=== PATIENT | male | born 1965 | race Caucasian/White ===

== ENCOUNTER 2021-09-28 17:58 | Inpatient (IN) | payer BC ==
[2021-09-28 23:12] LABS: EPI CELLS 14 /uL (0-25.1); HYALINE CASTS 25 /uL (0-3.1); INR 0.93 (0.83-1.09); PROTHROMBIN TIME (PATIENT) 10.9 SEC (9.7-13.0); URINE APPEARANCE TURBID; URINE BACTERIA 5222 /uL (0-1359); URINE BILIRUBIN NEGATIVE (NEGATIVE); URINE COLOR ORANGE; URINE GLUCOSE (UA) TRACE (NEGATIVE); URINE KETONE NEGATIVE (NEGATIVE); URINE LEUK ESTERASE 3+ (NEGATIVE); URINE NITRITE POSITIVE (NEGATIVE); URINE PROTEIN 2+ (NEGATIVE); URINE UROBILINOGEN 0.2 mg/dL (0.2-1.0); URINE WBC 1460 /uL (0-25.8)
[2021-09-28 23:17] LABS: CALCIUM 9.4 mg/dL (8.5-10.1)
[2021-09-28 23:18] LABS: ALBUMIN 3.4 g/dl (3.4-5.0); BLOOD UREA NITROGEN 47.7 mg/dL (7-18)
[2021-09-28 23:22] LABS: BILIRUBIN,TOTAL 0.8 mg/dL (0.2-1); TOT PROT 8.3 g/dl (6.4-8.2)
[2021-09-28 23:23] LABS: BASO % 0.3 % (0-2.0); EOS % 0.3 % (0-4.5); HEMATOCRIT 36.1 % (35.4-49); HEMOGLOBIN 12.7 GM/dL (11.7-16.9); LYMPH % 11.3 % (8-40); MCH 31.6 pg (25.7-33.7); MCHC 35.3 g/dl (32.0-35.9); MEAN CELL VOLUME 89.3 fl (80-96); MEAN PLT VOLUME 10.2 fl (7.5-11.1); MONO % 12.3 % (3.8-10.2); NEUT % 75.8 % (42.8-82.8); PLATELET COUNT 209 10^3/uL (134-434); RBC 4.04 M/mm3 (4.00-5.60); RDW 12.3 % (11.9-15.9)
[2021-09-28 23:30] LABS: WHITE BLOOD COUNT 10.3 K/mm3 (4.0-10.0)
[2021-09-29 00:01] LABS: URINE RBC 10634.1 /uL (0-23.9); YEAST NONE SEEN (NEGATIVE)
[2021-09-29] MEDS ORDERED: CEFTRIAXONE 1,000 MG in DEXTROSE 5%-WATER - 50 ML IVPB ONE (00:16)
[2021-09-29] MEDS ORDERED: SODIUM CHLORIDE 1,000 ML IV STA (00:17)
[2021-09-29] MEDS ORDERED: CEFTRIAXONE 1 GM/50 ML BAG ONE ×2 (01:12→18:12)
[2021-09-29 01:47] LABS: BLOOD UREA NITROGEN 46.6 mg/dL (7-18)
[2021-09-29 01:51] LABS: CREATININE 1.6 mg/dL (0.55-1.3)
[2021-09-29] MEDS: LACTATED RINGERS SOLUTION 1,000 ML/1,000 ML INFUS.BAG IV SCH (05:00)
[2021-09-29 06:52] LABS: BASO % 0.4 % (0-2.0); EOS % 0.6 % (0-4.5); HEMATOCRIT 36.8 % (35.4-49); LYMPH % 16.3 % (8-40); MCH 30.9 pg (25.7-33.7); MCHC 35.2 g/dl (32.0-35.9); MEAN CELL VOLUME 87.9 fl (80-96); MEAN PLT VOLUME 9.3 fl (7.5-11.1); MONO % 15.2 % (3.8-10.2); NEUT % 67.5 % (42.8-82.8); PLATELET COUNT 309 10^3/uL (134-434); RBC 4.19 M/mm3 (4.00-5.60); RDW 12.2 % (11.9-15.9); WHITE BLOOD COUNT 9.5 K/mm3 (4.0-10.0)
[2021-09-29 07:11] LABS: ALBUMIN 3.1 g/dl (3.4-5.0); BLOOD UREA NITROGEN 39.8 mg/dL (7-18); CALCIUM 8.7 mg/dL (8.5-10.1); MAGNESIUM 2.3 mg/dL (1.8-2.4)
[2021-09-29 07:14] LABS: CREATININE 1.4 mg/dL (0.55-1.3)
[2021-09-29 07:15] LABS: PHOSPHOROUS 3.8 mg/dL (2.5-4.9)
[2021-09-29 07:16] LABS: BILIRUBIN,TOTAL 0.4 mg/dL (0.2-1); TOT PROT 6.9 g/dl (6.4-8.2)
[2021-09-29] MEDS: INSULIN SLIDING SCALE (NOVOLOG) 1 VIAL SQ SCH ×4 (08:13→23:13)
[2021-09-29 09:25] LABS: OPIATES, URI NEGATIVE (NEGATIVE); URINE AMPHETAMINES NEGATIVE (NEGATIVE)
[2021-09-29 09:26] LABS: METHADONE, UR NEGATIVE (NEGATIVE); PHENCYCLIDINE,URINE NEGATIVE (NEGATIVE); URINE BENZODIAZEPINES NEGATIVE (NEGATIVE)
[2021-09-29 09:37] LABS: COCAINE, UR POSITIVE (NEGATIVE); URINE BARBITURATES NEGATIVE (NEGATIVE)
[2021-09-29 09:56] LABS: EPI CELLS 32 /uL (0-25.1); HYALINE CASTS 28 /uL (0-3.1); URINE APPEARANCE TURBID; URINE BILIRUBIN NEGATIVE (NEGATIVE); URINE COLOR ORANGE; URINE GLUCOSE (UA) 2+ (NEGATIVE); URINE KETONE 1+ (NEGATIVE); URINE LEUK ESTERASE 2+ (NEGATIVE); URINE NITRITE NEGATIVE (NEGATIVE); URINE PROTEIN 3+ (NEGATIVE); URINE UROBILINOGEN 0.2 mg/dL (0.2-1.0); URINE WBC 10989 /uL (0-25.8)
[2021-09-29 10:32] LABS: URINE RBC MODERATE /uL (0-23.9); YEAST NO SEEN (NEGATIVE)
[2021-09-29 10:33] LABS: URINE BACTERIA MANY /uL (0-1359)
[2021-09-29] MEDS ORDERED: INSULIN (LEVEMIR) 100 UNITS/ML UNITS SQ ONE ×2 (14:25→22:49)
[2021-09-29] MEDS: CEFTRIAXONE 1 GM in DEXTROSE 5%-WATER - 50 ML IVPB SCH (18:19)
[2021-09-29] MEDS: INSULIN (LEVEMIR) 100 UNITS/ML UNITS SQ SCH (23:13)
[2021-09-30 01:42] VITALS: BMI 22.4
[2021-09-30] MEDS ORDERED: PNEUMOC 13-VAL CONJ-DIP CRM/PF 0.5 ML DISP.SYRIN IM ONE (01:42)
[2021-09-30 01:50] LABS: CALCIUM 8.4 mg/dL (8.5-10.1)
[2021-09-30 01:51] LABS: BLOOD UREA NITROGEN 27.3 mg/dL (7-18)
[2021-09-30 01:54] LABS: CREATININE 1.1 mg/dL (0.55-1.3)
[2021-09-30] MEDS: LACTATED RINGERS SOLUTION 1,000 ML/1,000 ML INFUS.BAG IV SCH ×3 (02:03→21:21)
[2021-09-30] MEDS: INSULIN SLIDING SCALE (NOVOLOG) 1 VIAL SQ SCH ×4 (06:01→21:21)
[2021-09-30 09:19] LABS: BASO % 0.6 % (0-2.0); EOS % 2.7 % (0-4.5); HEMATOCRIT 35.7 % (35.4-49); HEMOGLOBIN 12.4 GM/dL (11.7-16.9); LYMPH % 20.7 % (8-40); MCH 30.8 pg (25.7-33.7); MCHC 34.6 g/dl (32.0-35.9); MEAN CELL VOLUME 89.1 fl (80-96); MEAN PLT VOLUME 9.1 fl (7.5-11.1); MONO % 12.9 % (3.8-10.2); NEUT % 63.1 % (42.8-82.8); PLATELET COUNT 307 10^3/uL (134-434); RBC 4.01 M/mm3 (4.00-5.60); RDW 12.3 % (11.9-15.9); WHITE BLOOD COUNT 8.1 K/mm3 (4.0-10.0)
[2021-09-30 09:59] LABS: CALCIUM 8.5 mg/dL (8.5-10.1)
[2021-09-30] MEDS ORDERED: FLU VACC QS2021-22(6MOS UP)/PF 60 MCG/0.5 ML SYRINGE IM ONE (10:00)
[2021-09-30] MEDS ORDERED: PNEUMOCOCCAL 23 VACCINE 0.5 ML VIAL IM ONE (10:00)
[2021-09-30 10:03] LABS: MAGNESIUM 2.3 mg/dL (1.8-2.4)
[2021-09-30 10:06] LABS: CREATININE 1.1 mg/dL (0.55-1.3); PHOSPHOROUS 3.6 mg/dL (2.5-4.9)
[2021-09-30 10:20] LABS: BLOOD UREA NITROGEN 21.6 mg/dL (7-18)
[2021-09-30] MEDS ORDERED: DEXTROSE 5%-WATER - 50 ML IVPB ONE (11:00)
[2021-09-30] MEDS ORDERED: cefTRIAXone SODIUM 1 GM VIAL ONE (11:00)
[2021-09-30] MEDS: CEFTRIAXONE 1 GM in DEXTROSE 5%-WATER - 50 ML IVPB SCH (11:02)
[2021-09-30] MEDS: POLYETHYLENE GLYCOL (HEALTHYLAX) 3350 17 GM PACKET PO SCH ×2 (11:03→21:20)
[2021-09-30] MEDS: DOCUSATE SODIUM 100 MG CAPSULE (FP) PO SCH ×2 (11:03→21:20)
[2021-09-30] MEDS: amLODIPine BESYLATE 5 MG TABLET (FP) PO SCH (11:05)
[2021-09-30] MEDS ORDERED: INSULIN (NOVOLOG) ASPART 100 UNITS/ML 10ML VIAL ONE (20:51)
[2021-09-30] MEDS: INSULIN (LEVEMIR) 100 UNITS/ML UNITS SQ SCH (21:21)
[2021-09-30] MEDS ORDERED: ACETAMINOPHEN 325 MG TABLET (FP) PO ONE (23:41)
[2021-10-01] MEDS: LACTATED RINGERS SOLUTION 1,000 ML/1,000 ML INFUS.BAG IV SCH ×2 (05:35→16:27)
[2021-10-01] MEDS: INSULIN SLIDING SCALE (NOVOLOG) 1 VIAL SQ SCH ×4 (06:06→21:21)
[2021-10-01] MEDS ORDERED: PIPERACILLIN/TAZOB 3.375 GM 3.375 GM in DEXTROSE 5%-WATER - 50 ML IVPB ONE (08:54)
[2021-10-01] MEDS ORDERED: PIPERACILLIN/TAZOBACTAM 3.375 GM VIAL IVPB ONE ×2 (09:37→16:24)
[2021-10-01] MEDS ORDERED: cefTRIAXone SODIUM 1 GM VIAL ONE (09:37)
[2021-10-01] MEDS ORDERED: DEXTROSE 5%-WATER - 50 ML IVPB ONE ×3 (09:37→16:24)
[2021-10-01] MEDS: CEFTRIAXONE 1 GM in DEXTROSE 5%-WATER - 50 ML IVPB SCH (09:53)
[2021-10-01] MEDS: DOCUSATE SODIUM 100 MG CAPSULE (FP) PO SCH ×2 (09:56→21:25)
[2021-10-01] MEDS: PIPERACILLIN/TAZOB 3.375 GM 3.375 GM in DEXTROSE 5%-WATER - 50 ML IVPB SCH ×2 (09:56→17:01)
[2021-10-01] MEDS: amLODIPine BESYLATE 5 MG TABLET (FP) PO SCH (09:56)
[2021-10-01] MEDS: POLYETHYLENE GLYCOL (HEALTHYLAX) 3350 17 GM PACKET PO SCH ×2 (09:58→21:25)
[2021-10-01 11:27] LABS: BASO % 0.6 % (0-2.0); EOS % 2.8 % (0-4.5); HEMATOCRIT 35.3 % (35.4-49); HEMOGLOBIN 12.1 GM/dL (11.7-16.9); LYMPH % 11.7 % (8-40); MCH 30.7 pg (25.7-33.7); MCHC 34.4 g/dl (32.0-35.9); MEAN CELL VOLUME 89.1 fl (80-96); MEAN PLT VOLUME 8.6 fl (7.5-11.1); MONO % 12.4 % (3.8-10.2); NEUT % 72.5 % (42.8-82.8); PLATELET COUNT 279 10^3/uL (134-434); RBC 3.96 M/mm3 (4.00-5.60); RDW 12.5 % (11.9-15.9)
[2021-10-01] MEDS: INSULIN (LEVEMIR) 100 UNITS/ML UNITS SQ SCH ×2 (11:35→21:21)
[2021-10-01 11:47] LABS: CALCIUM 8.4 mg/dL (8.5-10.1)
[2021-10-01 11:48] LABS: BLOOD UREA NITROGEN 16.3 mg/dL (7-18); MAGNESIUM 2.2 mg/dL (1.8-2.4)
[2021-10-01 11:51] LABS: CREATININE 1.1 mg/dL (0.55-1.3)
[2021-10-01] MEDS ORDERED: ACETAMINOPHEN 325 MG TABLET (FP) PO PRN (12:13)
[2021-10-01 13:09] LABS: EPI CELLS 12 /uL (0-25.1); HYALINE CASTS 3 /uL (0-3.1); URINE APPEARANCE TURBID; URINE BACTERIA 571 /uL (0-1359); URINE BILIRUBIN NEGATIVE (NEGATIVE); URINE COLOR YELLOW; URINE GLUCOSE (UA) 3+ (NEGATIVE); URINE KETONE NEGATIVE (NEGATIVE); URINE LEUK ESTERASE 2+ (NEGATIVE); URINE NITRITE NEGATIVE (NEGATIVE); URINE PROTEIN 2+ (NEGATIVE); URINE WBC 3689 /uL (0-25.8)
[2021-10-01 13:28] LABS: URINE RBC 183.9 /uL (0-23.9)
[2021-10-01 13:29] LABS: YEAST NONE SEEN (NEGATIVE)
[2021-10-01] MEDS ORDERED: INSULIN (NOVOLOG) ASPART 100 UNITS/ML 10ML VIAL ONE (20:46)
[2021-10-02] MEDS ORDERED: PIPERACILLIN/TAZOBACTAM 3.375 GM VIAL IVPB ONE ×3 (01:38→17:02)
[2021-10-02] MEDS ORDERED: DEXTROSE 5%-WATER - 50 ML IVPB ONE ×3 (01:38→17:02)
[2021-10-02] MEDS: PIPERACILLIN/TAZOB 3.375 GM 3.375 GM in DEXTROSE 5%-WATER - 50 ML IVPB SCH ×3 (01:59→17:08)
[2021-10-02] MEDS: LACTATED RINGERS SOLUTION 1,000 ML/1,000 ML INFUS.BAG IV SCH ×2 (03:54→15:50)
[2021-10-02] MEDS: INSULIN SLIDING SCALE (NOVOLOG) 1 VIAL SQ SCH ×4 (06:01→22:10)
[2021-10-02] MEDS: INSULIN (LEVEMIR) 100 UNITS/ML UNITS SQ SCH ×2 (06:01→22:10)
[2021-10-02 07:46] LABS: BASO % 0.6 % (0-2.0); EOS % 4.3 % (0-4.5); HEMATOCRIT 35.2 % (35.4-49); HEMOGLOBIN 12.1 GM/dL (11.7-16.9); LYMPH % 19.9 % (8-40); MCH 30.7 pg (25.7-33.7); MCHC 34.3 g/dl (32.0-35.9); MEAN CELL VOLUME 89.6 fl (80-96); MEAN PLT VOLUME 8.9 fl (7.5-11.1); MONO % 15.7 % (3.8-10.2); NEUT % 59.5 % (42.8-82.8); PLATELET COUNT 289 10^3/uL (134-434); RBC 3.93 M/mm3 (4.00-5.60); RDW 12.5 % (11.9-15.9); WHITE BLOOD COUNT 6.2 K/mm3 (4.0-10.0)
[2021-10-02 08:08] LABS: BLOOD UREA NITROGEN 13.1 mg/dL (7-18); CALCIUM 8.5 mg/dL (8.5-10.1)
[2021-10-02 08:11] LABS: CREATININE 1.1 mg/dL (0.55-1.3); PHOSPHOROUS 3.8 mg/dL (2.5-4.9)
[2021-10-02] MEDS: ENOXAPARIN NA (PORCINE) 40 MG/0.4 ML DISP.SYRIN SQ SCH (09:31)
[2021-10-02] MEDS: amLODIPine BESYLATE 5 MG TABLET (FP) PO SCH (09:31)
[2021-10-02] MEDS: POLYETHYLENE GLYCOL (HEALTHYLAX) 3350 17 GM PACKET PO SCH ×2 (09:31→22:08)
[2021-10-02] MEDS: DOCUSATE SODIUM 100 MG CAPSULE (FP) PO SCH ×2 (09:31→22:07)
[2021-10-02] MEDS ORDERED: INSULIN (NOVOLOG) ASPART 100 UNITS/ML 10ML VIAL ONE (21:21)
[2021-10-03] MEDS ORDERED: PIPERACILLIN/TAZOBACTAM 3.375 GM VIAL IVPB ONE ×2 (00:23→09:28)
[2021-10-03] MEDS ORDERED: DEXTROSE 5%-WATER - 50 ML IVPB ONE ×2 (00:23→09:28)
[2021-10-03] MEDS: PIPERACILLIN/TAZOB 3.375 GM 3.375 GM in DEXTROSE 5%-WATER - 50 ML IVPB SCH ×3 (01:22→18:15)
[2021-10-03] MEDS: INSULIN SLIDING SCALE (NOVOLOG) 1 VIAL SQ SCH ×3 (06:05→16:27)
[2021-10-03] MEDS: INSULIN (LEVEMIR) 100 UNITS/ML UNITS SQ SCH (06:06)
[2021-10-03] MEDS ORDERED: INSULIN (NOVOLOG) ASPART 100 UNITS/ML 10ML VIAL ONE (06:22)
[2021-10-03 08:27] LABS: BASO % 0.5 % (0-2.0); EOS % 3.5 % (0-4.5); HEMATOCRIT 36.1 % (35.4-49); HEMOGLOBIN 12.2 GM/dL (11.7-16.9); LYMPH % 22.7 % (8-40); MCH 30.6 pg (25.7-33.7); MCHC 33.9 g/dl (32.0-35.9); MEAN CELL VOLUME 90.2 fl (80-96); MEAN PLT VOLUME 8.8 fl (7.5-11.1); NEUT % 59.3 % (42.8-82.8); PLATELET COUNT 307 10^3/uL (134-434); RDW 12.6 % (11.9-15.9); WHITE BLOOD COUNT 6.7 K/mm3 (4.0-10.0)
[2021-10-03 08:47] LABS: CALCIUM 8.9 mg/dL (8.5-10.1)
[2021-10-03 08:48] LABS: BLOOD UREA NITROGEN 13.8 mg/dL (7-18); MAGNESIUM 2.2 mg/dL (1.8-2.4)
[2021-10-03 08:51] LABS: CREATININE 1.1 mg/dL (0.55-1.3); PHOSPHOROUS 4.7 mg/dL (2.5-4.9)
[2021-10-03] MEDS: amLODIPine BESYLATE 5 MG TABLET (FP) PO SCH (09:42)
[2021-10-03] MEDS: DOCUSATE SODIUM 100 MG CAPSULE (FP) PO SCH ×2 (09:42→09:48)
[2021-10-03] MEDS: POLYETHYLENE GLYCOL (HEALTHYLAX) 3350 17 GM PACKET PO SCH ×2 (09:42→09:48)
[2021-10-03] MEDS: ENOXAPARIN NA (PORCINE) 40 MG/0.4 ML DISP.SYRIN SQ SCH (09:43)
[2021-10-03 12:05] VITALS: PULSE 72
[2021-10-03 14:53] VITALS: BP 145/83; TEMP 98.1
[2021-10-03] MEDS: LACTATED RINGERS SOLUTION 1,000 ML/1,000 ML INFUS.BAG IV SCH (14:57)
== END 2021-10-03 18:21 | disposition home or self-care (01) | DRG 690 ==
LOC: JER 17:58 → JERBED 22:19 → J8W 09-30 01:26
PROVIDERS: ATTEND Internal Medicine
DX: N39.0 Urinary tract infection, site not specified (principal); N17.9 Acute kidney failure, unspecified; E87.1 Hypo-osmolality and hyponatremia; R31.0 Gross hematuria; E11.9 Type 2 diabetes mellitus without complications; N40.1 Benign prostatic hyperplasia with lower urinary tract symptoms; R33.9 Retention of urine, unspecified; F14.10 Cocaine abuse, uncomplicated; D72.829 Elevated white blood cell count, unspecified; I10 Essential (primary) hypertension
CPT/HCPCS: 36415; 76775-TC; 76856-TC; 80048; 80053; 80307; 81003; 82436; 82550; 82570; 82962; 83036; 83735; 84100; 84133; 84300; 85025; 85610; 85730; 86850; 86900; 86901; 87040; 87086; 90686; 90732; 93005; 93010; 99285-25; C9803; G0008; G0009; U0003; U0005

== ENCOUNTER 2021-12-01 04:32 | Day surgery (SDC) | payer BC ==
[2021-11-30 11:21] VITALS: BMI 24.2
[2021-12-01 11:43] VITALS: TEMP 97.9
[2021-12-01] MEDS ORDERED: ONDANSETRON 4 MG/2 ML VIAL IVPUSH PRN (14:46)
[2021-12-01] MEDS ORDERED: MIDAZOLAM HCL 2 MG/2 ML SINGLE DOSE VIAL ONE (14:53)
[2021-12-01] MEDS ORDERED: LACTATED RINGERS SOLUTION 1,000 ML IV SCH (15:00)
[2021-12-01] MEDS ORDERED: ceFAZolin SODIUM 1 GM VIAL IVPB ONE (15:03)
[2021-12-01] MEDS ORDERED: METHYLENE BLUE 50 MG/10 ML AMPUL ONE (15:21)
[2021-12-01] MEDS ORDERED: LIDOCAINE HCL 2% JELLY 10 ML CARTRIDGE ONE (15:43)
[2021-12-01] MEDS ORDERED: LIDOCAINE HCL 2% JELLY 10 ML CARTRIDGE TP ONE (15:45)
[2021-12-01 19:07] VITALS: BP 138/79; PULSE 72
== END 2021-12-01 18:55 | disposition home or self-care (01) ==
LOC: JASU-SURG 04:32
PROVIDERS: ATTEND Urology
PROC: 0VB08ZX Excision of Prostate, Via Natural or Artificial Opening Endoscopic, Diagnostic (ICD-10-PCS; 2021-12-01)
PROC: 0TBB8ZX Excision of Bladder, Via Natural or Artificial Opening Endoscopic, Diagnostic (ICD-10-PCS; principal; 2021-12-01 14:00)
DX: D30.3 Benign neoplasm of bladder (principal); R33.8 Other retention of urine; R39.14 Feeling of incomplete bladder emptying; N13.8 Other obstructive and reflux uropathy; I10 Essential (primary) hypertension; E11.9 Type 2 diabetes mellitus without complications; Z87.891 Personal history of nicotine dependence; Z79.4 Long term (current) use of insulin; Z79.84 Long term (current) use of oral hypoglycemic drugs
CPT/HCPCS: 82962; 88305-TC; 94760; Q9968

== ENCOUNTER 2022-10-10 20:04 | Emergency (ER) | payer BC ==
[2022-10-10 20:49] VITALS: BP 137/82; PULSE 88; RESP 20; TEMP 98.2; BMI 24.2
[2022-10-10 22:30] LABS: BASO % 0.6 % (0-2.0); EOS % 1.6 % (0-4.5); HEMATOCRIT 34.7 % (35.4-49); HEMOGLOBIN 11.6 GM/dL (11.7-16.9); MCH 30.1 pg (25.7-33.7); MCHC 33.4 g/dl (32.0-35.9); MEAN CELL VOLUME 90.3 fl (80-96); MEAN PLT VOLUME 8.2 fl (7.5-11.1); MONO % 11.1 % (3.8-10.2); NEUT % 52.7 % (42.8-82.8); PLATELET COUNT 351 10^3/uL (134-434); RBC 3.84 M/mm3 (4.00-5.60); RDW 12.9 % (11.9-15.9); WHITE BLOOD COUNT 9.8 K/mm3 (4.0-10.0)
[2022-10-10 22:43] LABS: ALBUMIN 2.9 g/dl (3.4-5.0); BLOOD UREA NITROGEN 24.2 mg/dL (7-18); CALCIUM 9.1 mg/dL (8.5-10.1)
[2022-10-10 22:46] LABS: CREATININE 1.6 mg/dL (0.55-1.3)
[2022-10-10 22:48] LABS: BILIRUBIN,TOTAL 0.3 mg/dL (0.2-1); TOT PROT 7.4 g/dl (6.4-8.2)
[2022-10-10] MEDS ORDERED: LACTATED RINGERS SOLUTION 1,000 ML/1,000 ML INFUS.BAG IV ONE (22:52)
[2022-10-10 22:56] LABS: EPI CELLS >36 /uL (0-25.1); HYALINE CASTS 1250 /uL (0-3.1); URINE APPEARANCE Turbid; URINE BACTERIA 1373 /uL (0-1359); URINE BILIRUBIN Negative (NEGATIVE); URINE COLOR Yellow; URINE GLUCOSE (UA) 100 (NEGATIVE); URINE KETONE Negative (NEGATIVE); URINE LEUK ESTERASE Large (NEGATIVE); URINE NITRITE Negative (NEGATIVE); URINE PROTEIN 300 (NEGATIVE); URINE UROBILINOGEN 0.2 mg/dL (0.2-1.0); URINE WBC 23245 /uL (0-25.8)
[2022-10-10] MEDS ORDERED: CEPHALEXIN 250 MG/5 ML ORAL SUSPENSION PO ONE (23:02)
[2022-10-10] MEDS ORDERED: SULFAMETHOXAZOLE/TRIMETHOPRIM 800MG/160MG D.S. TABLET PO ONE (23:03)
[2022-10-10] MEDS ORDERED: SULFAMETHOXAZOLE/TRIMETHOPRIM 800MG/160MG D.S. TABLET ONE (23:32)
[2022-10-10 23:52] LABS: URINE RBC 414.8 /uL (0-23.9); YEAST PRESENT (NEGATIVE)
== END 2022-10-11 00:37 | disposition home or self-care (01) ==
LOC: JER 20:04
DX: N30.00 Acute cystitis without hematuria (principal)
CPT/HCPCS: 36415; 80053; 81003; 85025; 87086; 87186; 99283-25

== ENCOUNTER 2022-10-21 13:40 | Emergency (ER) | payer SELFPAY ==
[2022-10-21 14:03] VITALS: BP 137/90; PULSE 103; RESP 18; TEMP 98.4; BMI 24.2
== END 2022-10-21 14:46 | disposition home or self-care (01) ==
LOC: FER 13:40
DX: N30.00 Acute cystitis without hematuria (principal)
CPT/HCPCS: 81003; 81015; 87086; 99283-25